=== PATIENT | male | born 1965 | race Caucasian/White ===

== ENCOUNTER 2019-01-16 10:30 | Inpatient (IN) | payer MEDICARE, OTHER | END 2019-01-18 13:30 | disposition home or self-care (01) | LOC: PAS IN 10:30 → ORTHO 4S 18:00 | PROC: 0SR90J9 Replacement of Right Hip Joint with Synthetic Substitute, Cemented, Open Approach (ICD-10-PCS; principal; 2019-01-16 14:06) | DX: M16.11 Unilateral primary osteoarthritis, right hip (principal) ==